=== PATIENT | female | born 1940 | race Caucasian/White ===

== ENCOUNTER → 2017-05-02 | Outpatient (CLI) | payer MEDICARE, BC ==
[~2017-05-02] MED LIST: ADULT LOW DOSE81 MG PO; ALTOPREV20 MG PO; AUGMENTIN 875-1 EACH PO; CALCIUM 600 +1 EAC5 PO; CARVEDILOL25 MG PO; CELEXA20 MG; ELIQUIS2.5 MG; FENOFIBRATE160 MG; FISHOIL PO; FOSAMAX 70 MG T70 M1 PO; GLIMEPIRIDE1 MG; GLUCOPHAGE500 MG PO; GLUCOSAMINE &1 EACH PO; LEVOTHROID88 MCG PO; LISINOPRIL5 MG PO; LYRICA200 MG; MULTIPLE VITAM1 EAC3 PO; NIACIN 500 MG500 M1 PO; POTASSIUM20; PREDNISONE50 MG PO; PROTONIX40 M1; REVLIMID5 MG; SOTALOL120 MG; XANAX 0.5 MG0.5 M1 PO
== END ==
LOC: M.ULTRA 09:00
DX: N28.1 Cyst of kidney, acquired (principal); R94.5 Abnormal results of liver function studies; R16.0 Hepatomegaly, not elsewhere classified; K80.80 Other cholelithiasis without obstruction; I48.0 Paroxysmal atrial fibrillation; R19.8 Other specified symptoms and signs involving the digestive system and abdomen; E11.9 Type 2 diabetes mellitus without complications